=== PATIENT | female | born 1965 ===

== ENCOUNTER 2021-06-28 14:47 | Outpatient (REF) | payer MEDICAID, SELFPAY ==
[2021-06-29 10:53] LABS: COVID-19 RT-PCR UVMMC Result Negative (Negative)
== END 2021-06-28 14:48 | disposition home or self-care (01) ==
LOC: LBN 14:47
PROVIDERS: Visit Provider Physician Assistant Medical
DX: Z20.822 Contact with and (suspected) exposure to COVID-19 (principal); R05.8 Other specified cough
CPT/HCPCS: U0003